=== PATIENT | female | born 1995 | race Hispanic/Latino ===

== ENCOUNTER 2020-01-01 12:09 | Outpatient (CLI) | payer OTHER | END 2020-01-01 20:42 | disposition home or self-care (01) | LOC: RAD 12:09 | DX: M54.9 Dorsalgia, unspecified (principal); R41.3 Other amnesia; R51 Headache; J44.9 Chronic obstructive pulmonary disease, unspecified; F20.9 Schizophrenia, unspecified; F32.9 Major depressive disorder, single episode, unspecified; F41.9 Anxiety disorder, unspecified; R22.9 Localized swelling, mass and lump, unspecified; B19.20 Unspecified viral hepatitis C without hepatic coma ==